=== PATIENT | male | born 2000 | race Hispanic/Latino ===

== ENCOUNTER 2018-01-02 20:31 | Emergency (ER) | payer BC ==
--- NOTE | 2018-01-02 20:57 | ED PDOC ---
Arrival/HPI - General Chief Complaint: Lower Extremity Problem/Injury Time Seen by Provider: 01/02/18 20:38 Historian: Patient - History of Present Illness Narrative History of Present Illness (Text): 01/02/18 20:51 Pt is a 17 yo M with PMH of asthma presents to ED due to left ankle pain. Pt states that he was skateboarding prior to arrival. He was attempting to go up a ramp, but his board slid out front underneath him and landed awkwardly on his left leg. Patient reports pain and swelling in his left ankle and midway up his lower leg. Patient cannot ambulate due to pain and left ankle ROM is limited 2/ 2 pain. Patient states he also has abrasion on left knee, but has no pain and can fully move left knee. Patient denies any further trauma, head injury, LOC, syncope, CP, SOB, n/v/d, abdominal pain, fever, chills, or LAR[place]. Time/Duration: Prior to Arrival Symptom Onset: Sudden Symptom Course: Unchanged Quality: Throbbing Past Medical History - Provider Review Nursing Documentation Reviewed: Yes - Past History Past History: No Previous - Tetanus Immunization Tetanus Immunization: Unknown - Psychiatric Hx Depression: No Hx Emotional Abuse: No Hx Physical Abuse: No Hx Substance Use: No - Suicidal Assessment Feels Threatened In Home Enviroment: No Family/Social History - Physician Review Nursing Documentation Reviewed: Yes Family/Social History: No Known Family HX Smoking Status: Never Smoked Hx Alcohol Use: No Hx Substance Use: No Allergies/Home Meds Allergies/Adverse Reactions: Allergies No Known Allergies Allergy (Verified 01/02/18 20:53) Review of Systems - Physician Review All systems were reviewed & negative as marked: Yes (12 point ROS reviewed and is negative other than what is stated in HPI.) - Review of Systems Constitutional: Normal Eyes: Normal ENT: Normal Respiratory: Normal Cardiovascular: Normal Gastrointestinal: Normal Genitourinary Male: Normal Musculoskeletal: Other (left ankle pain and swelling) Skin: Normal Neurological: Normal Endocrine: Normal Hemo/Lymphatic: Normal Psychiatric: Normal Physical Exam Vital Signs Temp Pulse Resp BP Pulse Ox 01/02/18 20:53 98 F 109 H 18 116/72 100 Temperature: Afebrile Blood Pressure: Normal Pulse: Regular Respiratory Rate: Normal Appearance: Positive for: Non-Toxic Pain Distress: Moderate Mental Status: Positive for: Alert and Oriented X 3 - Systems Exam Head: Present: Atraumatic, Normocephalic Pupils: Present: PERRL Extroacular Muscles: Present: EOMI Conjunctiva: Present: Normal Mouth: Present: Moist Mucous Membranes Neck: Present: Normal Range of Motion Respiratory/Chest: Present: Clear to Auscultation, Good Air Exchange. No: Respiratory Distress, Accessory Muscle Use Cardiovascular: Present: Regular Rate and Rhythm, Normal S1, S2. No: Murmurs Abdomen: No: Tenderness, Distention, Peritoneal Signs Back: Present: Normal Inspection Upper Extremity: Present: Normal Inspection. No: Cyanosis, Edema Lower Extremity: Present: Other (Left ankle swelling, medial and lateral malleoli tender to palpation, negative anterior drawer test, pain with left ankle inversion/eversion, limited AROM/PROM 2/2 pain) Neurological: Present: GCS=15, CN II-XII Intact, Speech Normal Skin: Present: Warm, Dry, Normal Color. No: Rashes Psychiatric: Present: Alert, Oriented x 3, Normal Insight, Normal Concentration Medical Decision Making ED Course and Treatment: 01/02/18 21:00 17 yo M presents to ED due to left ankle pain 2/2 fall. Plan: - Per [place] rules x-ray indicated (unable to ambulate after injury and in ED, bone tenderness at malleoli) - Left ankle xray - Left tib/fib xray - Reassess and disposition 01/02/18 21:42 Left ankle and tib/fib xrays reviewed by myself are negative for acute fracture. Results were discussed with patient and air cast, crutches, rest, ice, elevation , and compression were recommended. Patient to follow up with ortho in 1 week. Patient medically stable for discharge. - RAD Interpretation Radiology Orders: 01/02/18 20:51 ANKLE LEFT 3 VIEWS ROUTINE [RAD] Stat 01/02/18 20:52 TIBIA FIBULA LEFT [RAD] Stat - Medication Orders Current Medication Orders: Ibuprofen (Motrin Tab) 800 mg PO STAT STA Stop: 01/02/18 21:36 Disposition/Present on Arrival - Present on Arrival Any Indicators Present on Arrival: No History of DVT/PE: No History of Uncontrolled Diabetes: No Urinary Catheter: No History Surgical Site Infection Following: None - Disposition Have Diagnosis and Disposition been Completed?: Yes Diagnosis: Left ankle sprain Disposition: HOME/ ROUTINE Disposition Time: 21:43 Patient Plan: Discharge Patient Problems: Current Active Problems Problem Status Onset Left ankle sprain Acute Condition: STABLE Discharge Instructions (ExitCare): Ankle Sprain (DC) Additional Instructions: 1. Follow up with ortho in 1 week 2. Use air cast and MAGDI bandage on left ankle for at least 1 week or until instructed by ortho 3. Ice ankle for 15 minutes intervals, place towel between ice and skin to prevent ice burn 4. Elevate ankle as much as possible 5. Use crutches as needed 6. Return to ED if symptoms worsen DEDE ARROYO, thank you for letting us take care of you today. Your provider was Jacinto Bryson DO and you were treated for HURT (L) LEG. The emergency medical care you received today was directed at your acute symptoms. If you were prescribed any medication, please fill it and take as directed. It may take several days for your symptoms to resolve. Return to the Emergency Department if your symptoms worsen, do not improve, or if you have any other problems. Please contact your doctor or call one of the physicians/clinics you have been referred to that are listed on the Patient Visit Information form that is included in your discharge packet. Bring any paperwork you were given at discharge with you along with any medications you are taking to your follow up visit. Our treatment cannot replace ongoing medical care by a primary care provider outside of the emergency department. Thank you for allowing the [facility] team to be part of your care today. Prescriptions: Ibuprofen [Motrin] 600 mg PO TID PRN #15 tab PRN Reason: Pain, Moderate (4-7) Referrals: Danay South MD [Primary Care Provider] - Follow up with primary Andreas Mo MD [Staff Provider] - Follow up with primary Forms: [employer] ([place])
[2018-01-02 20:59] VITALS: RESP 18; TEMP 98; O2SAT 100; BMI 25.4
[2018-01-02 21:54] VITALS: BP 118/70; PULSE 100
--- NOTE | 2018-01-03 09:07 | RAD ---
PROCEDURE: Radiographs of the left tibia and fibula. HISTORY: fall COMPARISON: Comparison made with radiographs of the concurrent radiographs of the left ankle TECHNIQUE: Frontal and lateral views obtained. FINDINGS: BONES: No fracture or destructive lesion. JOINT SPACES: Unremarkable. OTHER FINDINGS: None. IMPRESSION: Unremarkable radiographs of the left tibia and fibula.
--- NOTE | 2018-01-03 09:08 | RAD ---
PROCEDURE: Left Ankle Radiographs. HISTORY: fall COMPARISON: Comparison made with concurrent radiographs left tibia fibula as well as prior radiographs left ankle dated 03/09/2013. FINDINGS: BONES: Normal. No fracture. JOINTS: Normal. No osteoarthritis. Ankle mortise maintained. Talar dome intact SOFT TISSUES: Normal. OTHER FINDINGS: None. IMPRESSION: No evidence of acute displaced fracture nor dislocation. If symptoms persist or occult fracture suspected clinically recommend repeat radiographs in 7-10 days as most fractures should become radiographically evident in this timeframe
== END 2018-01-02 21:53 | disposition home or self-care (01) ==
LOC: ED 20:31
DX: S93.402A Sprain of unspecified ligament of left ankle, initial encounter (principal); Y93.51 Activity, roller skating (inline) and skateboarding